=== PATIENT | female | born 1970 | race Caucasian/White ===

== ENCOUNTER 2017-07-02 08:19 | Observation (INO) ==
[2017-07-02] MEDS: NITROGLYCERIN 0.4 MG SL TAB (BOTTLE OF 3) SL ONE ×2 (08:35→08:44)
[2017-07-02] MEDS ORDERED: Sodium Chloride 0.9% 1,000 ML PRIMARY IV ONE (08:36)
[2017-07-02] MEDS ORDERED: ASPIRIN 81 MG (BABY) CHEWABLE TABLET PO ONE (08:36)
[2017-07-02] MEDS ORDERED: MORPHINE SULFATE 4 MG/1 ML IVP ONE (08:36)
[2017-07-02] MEDS ORDERED: ONDANSETRON 4 MG/2 ML VIAL IVP ONE (08:36)
--- NOTE | 2017-07-02 08:39 | PDOC ---
Chest Pain HPI - General Chief Complaint: Chest Pain Stated Complaint: chest pain Date Seen by Provider: 07/02/17 Time Seen by Provider: 08:30 Source: Patient Exam Limitations: POSITIVE: No limitations Treatment Prior to Arrival: REPORTS: Nitroglycerin Nurse's Notes Reviewed & Considered: Yes - History of Present Illness Initial Comments: This is a well-developed well-nourished, anxious, 47-year-old female complaining of chest pressure in her left substernal chest radiating into her left arm and shoulder with associated left arm numbness. She does have some shortness of breath, denies fever chills or sweats, she does have nausea but no vomiting or diarrhea. Symptoms awoke her this morning at 0400 hrs. and EMS was called. She received sublingual nitroglycerin that improved her chest pain. 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 Review of her EKG from 2013 shows T-wave inversions present at that time in V1. Body Location Affected: REPORTS: Chest Timing: REPORTS: Abrupt Duration: 4-6 hours Severity: Severe Context: REPORTS: Sleep Quality: REPORTS: Pressure Radiation: REPORTS: Neck (L), Shoulder (L), Arm (L) Associated Symptoms: REPORTS: Nausea, Shortness of Breath Modifying Factors: improves with: Nitroglycerin Similar Symptoms Previously: No Recently seen/treated/hospitalized: No Any Prior Injuries Related to Current Complaint?: No - Patient Home Medications Home Medications: Home Medications Ibuprofen [Advil] 200 mg PO Q4H PRN 03/27/14 Estradiol [Vagifem] 1 tab VG 2XW #26 tab 02/01/15 - Patient Allergies Allergies/Adverse Reactions: Allergies 3 Allergy/AdvReac Type Severity Reaction Status Date / Time omeprazole [From Prilosec] Allergy Severe SHORTNESS Verified 07/02/17 08:30 OF BREATH omeprazole magnesium Allergy Severe SHORTNESS Verified 07/02/17 08:30 [From Prilosec] OF BREATH Penicillins Allergy Severe SHORTNESS Verified 07/02/17 08:30 OF BREATH Sulfa (Sulfonamide Allergy Severe DIFFICULTY Verified 07/02/17 08:30 Antibiotics) SWALLOWING iodine [Iodine] Allergy Intermediate SHORTNESS Verified 07/02/17 08:30 OF BREATH Past Medical History - heen Additional HEENT History: DEVIATED SEPTUM REPAIR 04/04 Cardiovascular History: Denies History Respiratory History: Other (please comment) Additional Respiratory History: MOLAR PREGANCY, 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 JHONY. APPY Genitourinary History: Recurrent UTI Additional Genitourinary History: prior to Hysterectomy Endocrine History: Denies History Musculoskeletal History: Denies History, Other (please comment) Prosthesis or Implant: No Additional Musculoskeletal History: BACK SURGERY Neurological History: Denies History Blood Disorders: Denies History Psychiatric History: Depression History of Sexually Transmitted Diseases: No Cancer History: Lung Cancer Treatment / Date(s) of Treatment: 0215-7527 History of MDRO: No History of Other Communicable Diseases: No Alcohol Use: Rarely In the Past 12 Months, Have Used or Abuse Any Substance: None Previous Surgical History: Yes Type / Date of Surgery: HYSTER, BACK, NOSE, TONSILS, APPY, JHONY Anesthesia Reactions: No Malignant Hyperthermia: No Significant Family History: No pertinent family hx ROS - Limitations ROS Limitations: No Limitations Constitution: REPORTS: Denies Symptoms Cardiovascular: REPORTS: Chest Pain Respiratory: REPORTS: Shortness Of Breath Neurological: REPORTS: Denies Neuro Symptoms Gastrointestinal: REPORTS: Nausea Endocrine: REPORTS: Denies Symptoms Musculoskeletal: REPORTS: Denies MS Symptoms Genitourinary: REPORTS: Denies Symptoms Eyes: REPORTS: Denies Symptoms ENT: REPORTS: Denies Symptoms Skin: REPORTS: Denies Skin Symptoms Lympathic: REPORTS: Denies Lympathic Symptoms Immunologic: POSITIVE: Denies Symptoms Psychiatric: POSITIVE: Denies Psych Symptoms Chest Pain PE - General Appearance General Appearance: REPORTS: Alert, Cooperative, No Evidence of Trauma, Moderate Distress - HEENT HEENT: POSITIVE: Head Inspection Nml, Eyes Inspection Nml, Ears Inspection Nml, Nose Inspection Nml, Oral/Dental Inspect. Nml, Pharynx Inspect. Nml, PERRL, EOMI - Neck Neck: REPORTS: Normal Inspection - Respiratory Respiratory: REPORTS: No Respiratory Distress, Breath Sounds Normal, Chest Non- Tender - Cardiovascular Cardiovascular: REPORTS: Regular Rate and Rhythm, Heart Sounds Normal, No Murmur , No Gallop, No Friction Rub, No JVD - Abdomen Abdomen: Soft: (All Quadrants), Normal Bowel Sounds: (All Quadrants), Denies Tenderness: (All Quadrants), No Splenomegaly: (All Quadrants), No Hepatomegaly: (All Quadrants), No Guarding: (All Quadrants), No Rebound: (All Quadrants), No Palpable Pulse: (All Quadrants), No Palpabale Mass: (All Quadrants), No Distention: (All Quadrants), No Rigidity: (All Quadrants) - Skin Skin: REPORTS: Intact, Normal For Race, Warm, Dry, No Rash - Extremities Extremity: Non-Tender: (All Extremities), Normal ROM: (All Extremities), Normal Inspection: (All Extremities), Pelvis Stable: (All Extremities) - Neurological / Psychological Neurological: POSITIVE: Affect Apporpriate, Oriented X3, Motor Normal, Sensation Normal Chest Pain Progress - Results Reviewed by me Xrays/CTs/US Reviewed by me: No Discussed with Radiologist: No Lab Results Reviewed by Me: No - Patient's Progress Pain Medication Addressed: POSITIVE: Yes Re-Examine Time: 09:01 Status: POSITIVE: Improved MDM / ED Course: Patient was evaluated, an IV started, blood drawn and sent to the lab for studies, radiographic and EKG studies were also obtained. Patient received sublingual nitroglycerin and her pain was a 0 after the second dose. The end of my shift is occurred prior to chest x-ray or laboratory findings to be available. I have turned over care to Dr. Rodriguez Green, please see his dictation for findings, assessment, and plan. Quality Measure Initiative: CP/AMI: POSITIVE: EKG, ASA Quality Measure Initiative: CAP: POSITIVE: CXR or CT Patient Care Time - Estimated PCT Patient Care Time (In Minutes): 20 Vital Signs - VS Reviewed Vital Signs Reviewed: Yes Discharge Clinical Impression: Chest pain Condition: Stable Follow Up With: NOT IN TABLE, [Primary Care Provider] -
--- NOTE | 2017-07-02 08:42 | EKG ---
[address] [address] Measurements Intervals [place] Rate: 78 P: 24 [place]: 132 QRS: 15 QRSD: 85 T: 13 QT: 349 QTc: 383 Interpretive Statements SINUS RHYTHM NONSPECIFIC T-WAVE ABNORMALITY Compared to ECG 03/27/2014 12:57:46 No significant changes Electronically Signed On 07-02-17 15:07:12 MST by Gopi Small [email or web address]
[2017-07-02 08:45] LABS: BASOPHILS # (AUTO) 0.04 10*3/UL; BASOPHILS % (AUTO) 0.4 % (0-1); EOSINOPHILS # (AUTO) 0.33 10*3/UL; EOSINOPHILS % (AUTO) 3.6 % (0-8); Hematocrit [HCT] 45.2 % (37.0-47.0); Hemoglobin [HGB] 15.9 g/dL (12.0-16.0); LYMPHOCYTES # (AUTO) 2.76 10*3/uL; MEAN CORPUSCULAR HEMOGLOBIN 29.9 PG (27-31); MEAN CORPUSCULAR HGB CONC 35.2 g/dL (33-37); MONOCYTES # (AUTO) 0.65 10*3/UL (0.3-0.8); NEUTROPHILS # (AUTO) 5.44 10*3/UL; NEUTROPHILS % (AUTO) 58.9 % (50-80); RED BLOOD COUNT 5.32 10^6/uL (4.20-5.40)
[2017-07-02 09:01] LABS: BLOOD UREA NITROGEN 15 mg/dL (7-22); BUN/CREATININE RATIO 21.42 (6-20); SERUM ALBUMIN 4.4 g/dL (3.5-4.8)
[2017-07-02 09:02] LABS: PLATELET MORPHOLOGY COMMENT NORMAL MORPHOLOGY (NORM); RBC MORPHOLOGY COMMENT NORMAL MORPHOLOGY (NORM); WBC MORPHOLOGY COMMENT NORMAL MORPHOLOGY (NORM)
[2017-07-02 09:22] LABS: Erythrocyte Sediment Rate 2 MM/HR (0-20)
--- NOTE | 2017-07-02 10:11 | PDOC ---
HPI - History of Present Illness History of Present Illness: This very nice 47-year-old female comes in into the ER early this morning complaining some chest pain with some left arm numbness she received sublingual nitroglycerin from EMS which improved her chest pain she had a history of lung cancer at 16 EKG no changes from 2014 which shows inverted T waves in V1. Patient will be admitted to the hospital on observation for rule out and a Lexiscan stress test risk factors that she is a former smoker Past Medical History Tobacco Use: Former Smoker In the Past 12 Months, Have Used or Abuse Any of the Following Substance: None Medication / Allergies Home Medications: Home Medications 3 Medication Instructions Recorded Confirmed Type Ibuprofen [Advil] 200 mg PO Q4H PRN 03/27/14 07/02/17 History Estradiol [Vagifem] 1 tab VG 2XW #26 tab 02/01/15 07/02/17 History Allergies/Adverse Reactions: Allergies 3 Allergy/AdvReac Type Severity Reaction Status Date / Time omeprazole [From Prilosec] Allergy Severe SHORTNESS Verified 07/02/17 08:30 OF BREATH omeprazole magnesium Allergy Severe SHORTNESS Verified 07/02/17 08:30 [From Prilosec] OF BREATH Penicillins Allergy Severe SHORTNESS Verified 07/02/17 08:30 OF BREATH Sulfa (Sulfonamide Allergy Severe DIFFICULTY Verified 07/02/17 08:30 Antibiotics) SWALLOWING iodine [Iodine] Allergy Intermediate SHORTNESS Verified 07/02/17 08:30 OF BREATH Review of Systems - Review of Systems All Systems: Reviewed & No Additional Complaints Except as Stated - Cardiovascular Cardiovascular: REPORTS: Chest Pain - Gastrointestinal Gastrointestinal / Abdominal: DENIES: Negative System Review, Nausea, Vomiting, Diarrhea, Constipation, Abdominal Pain, Bloody Stool, Poor Appetite, Heartburn, Regurgitation, Bloating, Lactose Intolerance, Melena, Bright Red Blood per Rectum, Other, See HPI - Genitourinary Genitourinary: DENIES: Negative System Review, Pain, Burning, Hematuria, Incontinence, Urgency, Hesitant Stream, Decreased Stream, Nocutria, Discharge, Sexual Dysfunction, Other, See HPI Exam - Vitals Vital Signs: Vital Signs Temperature 97.8 F Temperature Source Temporal Artery Scan Pulse Rate [Pulse Oximeter] 88 Respiratory Rate 18 Blood Pressure [Right Arm] 125/86 Pulse Ox 94 Oxygen Delivery Method Room Air Height 5 ft 1 in Weight 178 lb - General General Appearance: No Acute Distress, Cooperative - Head Head Exam: Normal Inspection, Normocephalic, Atraumatic - ENT ENT Exam: POSITIVE: Normal Exam, Normal External Ear Exam, Normal Oropharynx, TM 's Normal Bilaterally, Mucous Membranes Moist - Neck Neck Exam: Normal Inspection, Full ROM, No Tenderness, No Lymphadenopathy, No Thyromegaly, JVP is not Raised - Respiratory Respiratory Exam: POSITIVE: Clear to Auscultation - Bilaterally, Breathing Non Labored, Normal To Percussion, Normal to Percussion and Palpation - Cardiovascular Cardiovascular Exam: POSITIVE: RRR, No Murmur, No Clicks, No Gallops, No Rubs, PMI Non-Displaced - GI/Abdominal GI/Abdominal Exam: POSITIVE: Normal Bowel Sounds, Non Tender, Non Distended, Soft, No Masses, No Hepatomegaly, No Splenomegaly, No Organomegaly - Rectal Rectal Exam: POSITIVE: Deferred - External Exam: POSITIVE: Deferred Exam: POSITIVE: Deferred - Extremities Extremities Exam: POSITIVE: Normal Inspection, Full ROM, Normal Capillary Refill , No Clubbing Present, No Edema Present, No Cyanosis Present, Negative Lizzy's sign, Dosalis Pedis Pulses - Stong & Regular - Back Back Exam: POSITIVE: Normal Inspection, Full ROM, No CVA Tenderness - Neurological Neurological Exam: POSITIVE: Alert, Oriented x 3, Reflexes Normal, Normal Gait, CN II-XII Intact, No Facial Droop, Speech Intact / Clear, Moves All Extremities Equally, No Fasciculations, No Clonus - Psychiatric Psychiatric Exam: POSITIVE: Normal Affect, Normal Mood - Integumentary Integumentary Exam: POSITIVE: Normal Color, Warm, Dry, Intact Results - Labs CBC and BMP: 07/02/17 08:40 07/02/17 08:40 Assessment and Plan - Patient Problems (1) Chest pain Current Visit: Yes Status: Acute Comment: No acute changes on EKG we'll rule out with serial troponins if rules out we'll hold the initiate Lexiscan stress test Code(s): R07.9 - Chest pain, unspecified
--- NOTE | 2017-07-02 10:12 | DI ---
XR CXR 1VW,07/02/2017 8:36 AM: Clinical History: Chest pain Previous Exam: None at this facility. Findings: A single frontal radiograph of the chest is obtained, and demonstrates clear lungs. The cardiomediast inum and bony thorax are unremarkable. Impression: Normal chest.
[2017-07-02] MEDS ORDERED: NORMAL SALINE 10 ML SYRINGE FLUSH IVP PRN (10:21)
[2017-07-02] MEDS ORDERED: CALCIUM CARBONATE 500 MG (TUMS) CHEWABLE TABLET PO PRN (10:21)
[2017-07-02] MEDS ORDERED: LIDOCAINE W/ SODIUM BICARB 0.5 ML SYR SUBD PRN (10:21)
--- NOTE | 2017-07-02 13:07 | PDOC ---
Chest Pain HPI - General Chief Complaint: Chest Pain Stated Complaint: chest pain Date Seen by Provider: 07/02/17 Time Seen by Provider: 09:00 Source: Patient, RN/MD Exam Limitations: POSITIVE: No limitations Treatment Prior to Arrival: REPORTS: Nitroglycerin, Aspirin Nurse's Notes Reviewed & Considered: Yes EMS Report Reviewed & Considered: Verbal - History of Present Illness Initial Comments: The patient is a 47-year-old female who is brought to the emergency room by ambulance. She states that around 4 AM this morning she awoke with "heaviness" on the left side of her chest which radiated into her left arm with some associated "numbness". She also had pain radiating into the left side of her neck and left jaw. She lives in [place], and when the pain would not relent she called the ambulance, who brought her to the emergency room. She states she took 2 baby aspirin at home and the ambulance personnel gave her another 2 in route. Paramedics also administered nitroglycerin in route, which she states helped relieve her pain. Patient states she had a similar episode that occurred approximately one week ago, and lasted 40 minutes, and then resolved. When patient initially arrived at 8:19 AM, she was initially seen by Dr. Aleman , who was the emergency physician on duty at the time. She was administered 2 more nitroglycerin tablets, and she states that at the time I saw her, at 9 AM, she had complete resolution of her pain. Patient states that in 2013 she was admitted for chest pain. Electrocardiogram done March 2014 showed T-wave inversions in leads V1 and V3, and today's electrocardiogram is essentially unchanged. Review of old records shows that she had a Lexiscan and resting stress test in March 2014 which showed no fixed perfusion defects and a ejection fraction of 84%. She states that 2 years ago she was told she had "a virus in my heart". 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 Body Location Affected: REPORTS: Chest Timing: REPORTS: Constant Duration: 4-6 hours Severity: Moderate Gone now, lasted (minutes):: 300 Context: REPORTS: Sleep Quality: REPORTS: Pressure Radiation: REPORTS: Neck (L), Shoulder (L) Associated Symptoms: REPORTS: Nausea. DENIES: Vomiting, Diaphoresis, Shortness of Breath, Hurts to Breathe, Palpitations, Productive Cough (blood), Productive Cough (sputum), Weakness, Dizziness Modifying Factors: improves with: None Reported Similar Symptoms Previously: Yes (as above) Any Prior Injuries Related to Current Complaint?: No - Patient Home Medications Home Medications: Home Medications Ibuprofen [Advil] 200 mg PO Q4H PRN 03/27/14 Estradiol [Vagifem] 1 tab VG 2XW #26 tab 02/01/15 - Patient Allergies Allergies/Adverse Reactions: Allergies 3 Allergy/AdvReac Type Severity Reaction Status Date / Time omeprazole [From Prilosec] Allergy Severe SHORTNESS Verified 07/02/17 08:30 OF BREATH omeprazole magnesium Allergy Severe SHORTNESS Verified 07/02/17 08:30 [From Prilosec] OF BREATH Penicillins Allergy Severe SHORTNESS Verified 07/02/17 08:30 OF BREATH Sulfa (Sulfonamide Allergy Severe DIFFICULTY Verified 07/02/17 08:30 Antibiotics) SWALLOWING iodine [Iodine] Allergy Intermediate SHORTNESS Verified 07/02/17 08:30 OF BREATH Past Medical History - heen HEENT History: Denies History Additional HEENT History: DEVIATED SEPTUM REPAIR 04/04 Cardiovascular History: Other (please comment) Additional Cardiovasular History: 2014 virus in her heart Respiratory History: Other (please comment) Additional Respiratory History: MOLAR PREGANCY, 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 JHONY. APPY Genitourinary History: Recurrent UTI Additional Genitourinary History: prior to Hysterectomy Endocrine History: Denies History Musculoskeletal History: Other (please comment) Prosthesis or Implant: No Additional Musculoskeletal History: BACK SURGERY Neurological History: Denies History Blood Disorders: Denies History Psychiatric History: Depression History of Sexually Transmitted Diseases: No Female Reproductive History: Hysterectomy Obstetrical History: Denies History Cancer History: Lung Cancer Treatment / Date(s) of Treatment: 3144-8925 In Past Year Been Physically Harmed or Verbally Threatened: No History of MDRO: No History of Other Communicable Diseases: No Tobacco Use: Former Smoker Alcohol Use: Rarely In the Past 12 Months, Have Used or Abuse Any Substance: None Previous Surgical History: Yes Type / Date of Surgery: HYSTER, BACK, NOSE, TONSILS, APPY, JHONY Anesthesia Reactions: No Malignant Hyperthermia: No Significant Family History: No pertinent family hx Past Medical History Reviewed: Reviewed - No Changes ROS - Limitations ROS Limitations: No Limitations Constitution: REPORTS: Denies Symptoms Cardiovascular: REPORTS: Chest Pain Respiratory: REPORTS: Denies Resp Symptoms Neurological: REPORTS: Denies Neuro Symptoms Gastrointestinal: REPORTS: Nausea Musculoskeletal: REPORTS: Denies MS Symptoms Genitourinary: REPORTS: Denies Symptoms Eyes: REPORTS: Denies Symptoms ENT: REPORTS: Denies Symptoms Skin: REPORTS: Denies Skin Symptoms Lympathic: REPORTS: Denies Lympathic Symptoms Immunologic: POSITIVE: Denies Symptoms Psychiatric: POSITIVE: Denies Psych Symptoms Chest Pain PE - General Appearance General Appearance: REPORTS: Alert, Cooperative, No Acute Distress, No Evidence of Trauma - HEENT HEENT: POSITIVE: Head Inspection Nml, Eyes Inspection Nml, Ears Inspection Nml, Nose Inspection Nml, Oral/Dental Inspect. Nml, Pharynx Inspect. Nml, PERRL, EOMI - Neck Neck: REPORTS: Normal Inspection - Respiratory Respiratory: REPORTS: No Respiratory Distress, Breath Sounds Normal, Chest Non- Tender - Cardiovascular Cardiovascular: REPORTS: Regular Rate and Rhythm, Heart Sounds Normal, Equal Pulses, Strong Pulses, No Murmur, No Gallop, No Friction Rub, No JVD Peripheral Pulses: Radial (R): 2+, Radial (L): 2+ - Abdomen Abdomen: Soft: (All Quadrants), Normal Bowel Sounds: (All Quadrants), Denies Tenderness: (All Quadrants), No Splenomegaly: (All Quadrants), No Hepatomegaly: (All Quadrants), No Guarding: (All Quadrants), No Rebound: (All Quadrants), No Palpable Pulse: (All Quadrants), No Palpabale Mass: (All Quadrants), No Distention: (All Quadrants), No Rigidity: (All Quadrants) - Skin Skin: REPORTS: Intact, Normal For Race, Warm, Dry, No Rash - Extremities Extremity: Non-Tender: (All Extremities), Normal ROM: (All Extremities), Normal Inspection: (All Extremities) - Neurological / Psychological Neurological: POSITIVE: Affect Apporpriate, Oriented X3, toolmaker grade three Normal As Tested, Motor Normal, Sensation Normal Images - Complete Complete: 1 - Chest pain 2 - Radiation into neck 3 - Radiation into her shoulder Chest Pain Progress - Results Reviewed by me Xrays/CTs/US Reviewed by me: Yes Discussed with Radiologist: No Radiology Findings: Portable chest x-ray normal Lab Results Reviewed by Me: Yes (troponin negative, d-dimer negative) CBC and BMP: 07/02/17 08:40 07/02/17 08:40 EKG Interpreted/Reviewed By Me:: Yes (inverted T waves in V1 and V2 and V3; unchanged from 04/08) EKG Interpretation:: POSITIVE: Normal Sinus Rhythm, Normal Rate, Normal Intervals, Normal [place], Normal QRS, Normal ST/T (T-wave inversions V1 V2 and V3) - Patient's Progress Pain Medication Addressed: POSITIVE: Yes (Nitroglycerin 3 with resolution of pain) Re-Examine Time: 09:42 Re-Examine Comment: Patient remained stable throughout her stay in the emergency room. Results of electrocardiogram, chest x-ray and laboratory studies discussed with patient and her . Options of treatment discussed. Patient admitted to hospitalist, Dr. Araya, for further evaluation and treatment. Status: POSITIVE: Improved, Re-Examined Quality Measure Initiative: CP/AMI: POSITIVE: EKG, ASA - Consult Consult (If Yes, Name of Consulting MD & Time Called): Yes (Dr. Araya, hospitalist, [id number]) Consulting MD will see pt:: POSITIVE: [facility] [place] Admit Counseled: POSITIVE: Patient, Family, RE: Lab Results, RE: Radiology Results, RE : DX, RE: Need for F/U Patient Care Time - Estimated PCT Patient Care Time (In Minutes): 35 Vital Signs - Recent Vital Signs Vital Signs: Vital Signs (Last 8 hours) Temp Pulse Resp BP Pulse Ox 07/02/17 08:33 97.8 F 88 18 125/86 94 - VS Reviewed Vital Signs Reviewed: Yes Discharge Clinical Impression: Chest pain Discharge Disposition: Admit to Inpatient Condition: Stable Date Decision to Admit to Inpatient: 07/02/17 Time Decision to Admit to Inpatient: 09:40
[2017-07-02] MEDS ORDERED: KETOROLAC 15 MG/1 ML VIAL IVP ONE (20:00)
[2017-07-03 05:29] LABS: BLOOD UREA NITROGEN 14 mg/dL (7-22); CHOL/HDL RATIO 4.55 RATIO (0-4.0); SERUM ALBUMIN 3.6 g/dL (3.5-4.8); SERUM CHOLESTEROL 173 mg/dL (120-200)
[2017-07-03 08:51] VITALS: TEMP 97.9
--- NOTE | 2017-07-03 08:57 | DCSUMMARY ---
Hospitalization Summary Hospital Course: Final Discharge Diagnosis: Current Visit Problems Problem Status Onset Code Chest pain Acute R07.9 Diagnostic Data, Laboratory Data, and Procedures of Signifigance: Abnormal Lab Results (Last 24 Hours) Range/Units 07/02/17 07/03/17 08:40 04:08 Carbon Dioxide (23-33) meq/L 21 L 21 L BUN/Creatinine Ratio (6-20) 21.42 H Glucose (78-110) mg/dL 127 H 111 H Calculated Osmolality (267-292) mOsm/kg 296.0 H Total Bilirubin (0.3-1.2) mg/dL 0.2 L AST (8-39) IU/L 46 H HDL Cholesterol (40-150) mg/dL 38 L Cholesterol/HDL Ratio (0-4.0) RATIO 4.55 H History and Physical pertinent to Admission: Course of Hospitalization: Is a very nice 47-year-old female who was admitted for chest pain she did rule out with her troponins are negative 3 she will be doing her Lexiscan stress test today if results are negative we will be discharging her home and follow- up follow-up to primary care physician for possible investigation and rule out other causes of her chest pain possibly GERD. I advised her to stop taking ibuprofen chanel scan was negative Dr Wayne verbal report On the date of discharge, the patient was examined: Gen.: No acute distress, alert, nontoxic Heart: Regular rate and rhythm, no murmurs, clicks, gallops, or rubs Lungs: Clear to auscultation bilaterally, breathing is nonlabored Abdomen/GI: Normal tones on auscultation, soft, nontender, nondistended Musculoskeletal/extremities: No clubbing, cyanosis, or edema Vitals reviewed and are listed below Assessment and Plan: 1. As per discharge assessments above 2. Disposition: Home 3. Condition on discharge, stable and improved. 4. Diet: regular diet 5. Activities: resume normal activities 6. Follow-Up: 1. PCP 2. 7. Medications at the Time of Discharge: Home Medications 3 Medication Instructions Recorded Confirmed Type Ibuprofen [Advil] 200 mg PO Q4H PRN 03/27/14 07/02/17 History Estradiol [Vagifem] 1 tab VG 2XW #26 tab 02/01/15 07/02/17 History 8. Time, care, counseling and coordination of care for this discharge is greater than 30 minutes. Exam - Vitals Vital Signs: Vital Signs Temperature 97.9 F Temperature Source Temporal Artery Scan Pulse Rate [Pulse Oximeter] 64 Pulse Rate 82 Respiratory Rate 16 Blood Pressure [Right Arm] 123/84 Pulse Ox 94 Oxygen Delivery Method Room Air Height 5 ft 1 in Weight 182 lb 12.8 oz Patient Problems - Patient Problem List (1) Chest pain Status: Acute Code(s): R07.9 - Chest pain, unspecified Category: Medical
--- NOTE | 2017-07-03 10:31 | STRESSTEST ---
[facility] Interpretive Statements 47 yo female with no cad hx and neg troponins comes in with chest pain which resolved. no acute changes on stress portion will await pictures [email or web address]
[2017-07-03 14:11] VITALS: BP 127/69; RESP 18; O2SAT 92
--- NOTE | 2017-07-04 07:50 | DI ---
2 DAY LEXISCAN STRESS & REST MYOCARDIAL PERFUSION SCANS, 07/02/2017 10:21 AM : Clinical History: Chest pain Previous Exam: March 28, 2014 The patient was stressed by Dr. Rafi Araya MD The standard Lexiscan protocol was used. Please see the Doctor's report. At the designated time, 37.5 mCi of 99Tc-sestimibi was injected IV. Stress gated tomograms were acquired within one hour of the i njection. For the resting scans, 37.9 mCi was injected IV and resting gated tomograms were acquired in similar fashion. Stress scans were performed on 07/02/17; the resting scans were performed on 06/1017. Quantitative and qualitative analyses were performed. Quantitative analysis was performed with the [facility] [id number] protocols. Very low dose limited CT scans of the chest are o btained through the level of the heart for attenuation correction of the gated stress and rest cardia c SPECT data. Non-attenuated and attenuated scans were processed for review, and the attenuated scans were used for final interpretation of this study. Review of the raw data images and quality assurance nurse files indicate that these series of examinations ar e of excellent quality. Stress and rest left ventricular chamber sizes are normal. Stress and rest LV EF are 84 % and 74 %, respectively. There is no evidence of ischemia. There is normal wall motion. Transient ischemic dilatation ratio is 1.0, with a normal range up to 1.22 for patients stressed with the El protocol and up to 1.33 for patients stressed with the Lexiscan protocol. The very low dose CT scans through the level of the heart show no coronary artery calcifications. The re is no adenopathy or evidence of lung nodules. Readin. No evidence of ischemia. 2. Normal wall motion and ejection fraction.
== END 2017-07-03 15:30 | disposition home or self-care (01) ==
LOC: ER 08:19 → MED/SURG 08:19
PROVIDERS: ADMIT Internal Medicine; ATTEND Internal Medicine